=== PATIENT | female | born 1995 | race Caucasian/White ===

== ENCOUNTER 2018-01-07 15:43 | Inpatient (IN) | payer OTHER ==
[2018-01-07] MEDS ORDERED: PROMETHAZINE HCL 25 MG/1 ML VIAL IVPB ONE (16:20)
[2018-01-07] MEDS ORDERED: BUTORPHANOL TARTRATE 1 MG/ML VIAL IVPB ONE (16:20)
[2018-01-07] MEDS: DEXTROSE 5%-LACTATED RINGERS 1,000 ML IV SCH (16:30)
[2018-01-07 16:56] VITALS: BMI 27.8
[2018-01-07 17:33] LABS: BASO % 0.2 % (0-2.0); EOS % 0.2 % (0-4.5); HEMATOCRIT 36.4 % (32.4-45.2); HEMOGLOBIN 12.1 GM/dL (10.7-15.3); LYMPH % 15.2 % (8-40); MCH 30.4 pg (25.7-33.7); MCHC 33.1 g/dl (32.0-36.0); MEAN CELL VOLUME 91.7 fl (80-96); MEAN PLT VOLUME 10.4 fl (7.5-11.1); MONO % 4.4 % (3.8-10.2); PLATELET COUNT 171 K/MM3 (134-434); RBC 3.97 M/mm3 (3.60-5.2); RDW 13.3 % (11.6-15.6); WHITE BLOOD COUNT 11.1 K/mm3 (4.0-10.0)
--- NOTE | 2018-01-07 17:41 | HP ---
Past Medical History - Primary Care Physician PCP:: Nakul Burgos - Admission Chief Complaint: 40 weeks , labor, ama History of Present Illness: 22 yo f g 3 [id number] 40.2 weeks, c/o contractions since 11 am today, no rom, no bleeding , cx 3 cm 80 vx -2 mi, fhr cat 1, irregular contraction History Source: Patient Limitations to Obtaining History: No Limitations - Past Medical History Pulmonary: Yes: O2 Dependent ...: 3 ...Para: 1 ...Term: 1 ...: 0 ...Spon : 1 ...Induced : 0 ...Multiple Gestation: 0 ...LMP: 04/28/17 ... Weeks Gestation by Dates: 36.1 ...EDC by Dates: 02/03/18 ...EDC by Sono: 01/08/18 - Past Surgical History Hx Myomectomy: No Hx Transabdominal Cerclage: No - Smoking History Smoking history: Never smoked Have you smoked in the past 12 months: No Aproximately how many cigarettes per day: 0 - Alcohol/Substance Use Hx Alcohol Use: No - Social History History of Recent Travel: No Home Medications - Allergies Allergies/Adverse Reactions: Allergies Allergy/AdvReac Type Severity Reaction Status Date / Time No Known Allergies Allergy Verified 01/07/18 16:20 - Home Medications Home Medications: Ambulatory Orders Vit/Iron Fum/Folic AC [ Tablet] 1 tab PO DAILY 01/07/18 Review of Systems - Review of Systems Constitutional: reports: No Symptoms Eyes: reports: No Symptoms HENT: reports: No Symptoms Neck: reports: No Symptoms Cardiovascular: reports: No Symptoms Respiratory: reports: No Symptoms Gastrointestinal: reports: Abdominal Pain Genitourinary: reports: No Symptoms Breasts: reports: No Symptoms Reported Musculoskeletal: reports: No Symptoms Integumentary: reports: No Symptoms Neurological: reports: No Symptoms Endocrine: reports: No Symptoms Hematology/Lymphatic: reports: No Symptoms Psychiatric: reports: No Symptoms Physical Exam - Maternity Vital Signs: Vital Signs Temperature 99.4 F 01/07/18 17:00 Pulse Rate 69 01/07/18 17:00 Respiratory Rate 20 01/07/18 17:00 Blood Pressure 127/73 01/07/18 17:00 O2 Sat by Pulse Oximetry (%) Constitutional: Yes: Well Nourished, No Distress, Calm Eyes: Yes: WNL, Conjunctiva Clear, EOM Intact HENT: Yes: WNL, Atraumatic, Normocephalic Neck: Yes: WNL, Supple, Trachea Midline Cardiovascular: Yes: WNL, Regular Rate and Rhythm Breast(s): Yes: WNL - Abdominal Exam/OB Fundal Height: 40 Number of Fetuses: Single Problem List - Problems (1) Post term over 40 weeks Code(s): O48.0 - POST-TERM (2) 40 weeks gestation of Code(s): Z3A.40 - 40 WEEKS GESTATION OF (3) Labor established Code(s): KTQ6237 - Assessment/Plan plan admit, FHM, pain management, anticipate vaginal delivery
[2018-01-07 17:52] LABS: ANION GAP 12 (8-16); BLOOD UREA NITROGEN 9 mg/dL (7-18); CALCIUM 8.7 mg/dL (8.5-10.1); CHLORIDE 110 mmol/L (98-107); CO2 19 mmol/L (21-32); CREATININE 0.6 mg/dL (0.55-1.02); GLUCOSE,RANDOM 81 mg/dL (74-106); POTASSIUM 3.9 mmol/L (3.5-5.1); SODIUM 141 mmol/L (136-145)
[2018-01-07 18:06] LABS: INR 0.88 (0.82-1.09); PROTHROMBIN TIME (PATIENT) 9.9 SEC (9.7-13.0)
[2018-01-07 18:09] LABS: ACTIVATED PTT 26.4 SECONDS (25.2-36.5)
[2018-01-07] MEDS ORDERED: OXYTOCIN 20 UNITS in 0.9% NS 20 UNIT/1,000 ML INFUS.BAG IV ONE (20:18)
--- NOTE | 2018-01-07 20:35 | PN ---
Progress Note (short form) - Note Progress Note: 755 pm cx 6 cm 80 vx 0 arom clear, fhr cat 1 Problem List - Problems (1) Post term over 40 weeks Code(s): O48.0 - POST-TERM (2) 40 weeks gestation of Code(s): Z3A.40 - 40 WEEKS GESTATION OF (3) Labor established Code(s): TQY5914 -
[2018-01-07] MEDS ORDERED: METHYLERGONOVINE MALEATE 0.2 MG/1 ML AMP IM PRN (20:36)
[2018-01-07] MEDS ORDERED: BISACODYL 10 MG SUPP.RECT RC PRN (20:36)
[2018-01-07] MEDS ORDERED: BENZOCAINE 20% 57 GM BOTTLE TP PRN (20:36)
[2018-01-07] MEDS ORDERED: WITCH HAZEL 50% (TUCKS) 40 PAD/JAR PAD TP PRN (20:36)
[2018-01-07] MEDS ORDERED: ACETAMINOPHEN 325 MG TABLET (FP) PO PRN (20:36)
[2018-01-07] MEDS ORDERED: BENZOCAINE 28 GM HEMORRHOIDAL OINTMENT TP PRN (20:36)
[2018-01-07] MEDS ORDERED: D5W-LR W/ 20 UNITS OXYTOCIN 20 UNIT/1,000 ML INFUS.BAG IV SCH (20:45)
[2018-01-07 20:49] LABS: PLATELET ESTIMATE ADEQUATE
[2018-01-07] MEDS: IBUPROFEN 600 MG TABLET (FP) PO PRN (21:00)
[2018-01-07] MEDS ORDERED: IBUPROFEN 600 MG TABLET (FP) PO ONE (21:05)
--- NOTE | 2018-01-08 07:48 | PN ---
Progress Note (short form) - Note Progress Note: ppd 1 doing well, ,no excess vaginal bleeding Last Vital Signs Temp Pulse Resp BP Pulse Ox 98.6 F 57 L 18 120/64 01/08/18 06:00 01/08/18 06:00 01/08/18 06:00 01/08/18 06:00 abdomen soft, uterus firm, non tender lochia mild no calf tenderness plan ambulate , cbc Problem List - Problems (1) Post term over 40 weeks Code(s): O48.0 - POST-TERM (2) 40 weeks gestation of Code(s): Z3A.40 - 40 WEEKS GESTATION OF (3) Labor established Code(s): UTL7323 -
[2018-01-08 07:49] LABS: BASO % 0.2 % (0-2.0); EOS % 0.3 % (0-4.5); HEMATOCRIT 36.8 % (32.4-45.2); HEMOGLOBIN 12.5 GM/dL (10.7-15.3); LYMPH % 23.9 % (8-40); MCH 31.2 pg (25.7-33.7); MCHC 33.9 g/dl (32.0-36.0); MEAN CELL VOLUME 92.1 fl (80-96); MEAN PLT VOLUME 11.4 fl (7.5-11.1); MONO % 6.3 % (3.8-10.2); NEUT % 69.3 % (42.8-82.8); PLATELET COUNT 164 K/MM3 (134-434); RBC 3.99 M/mm3 (3.60-5.2); RDW 13.5 % (11.6-15.6); WHITE BLOOD COUNT 15.9 K/mm3 (4.0-10.0)
[2018-01-08] MEDS: FERROUS SO4 325 MG TABLET (FP) PO SCH ×2 (10:05→17:57)
[2018-01-08] MEDS: PRENATAL VITAMINS W/ FOLIC ACID TABLET (FP) PO SCH (10:05)
[2018-01-08] MEDS: DEXTROSE 5%-LACTATED RINGERS 1,000 ML IV SCH (20:19)
[2018-01-08] MEDS ORDERED: SENNOSIDES/DOCUSATE COMBO (SENNA PLUS) TABLET (UD) PO PRN (22:00)
[2018-01-08] MEDS: IBUPROFEN 600 MG TABLET (FP) PO PRN (23:05)
--- NOTE | 2018-01-09 08:04 | DS ---
Physical Exam-[facility] Vital Signs: Vital Signs Temperature 98.5 F 01/08/18 22:00 Pulse Rate 59 L 01/08/18 22:00 Respiratory Rate 18 01/08/18 22:00 Blood Pressure 121/58 01/08/18 22:00 O2 Sat by Pulse Oximetry (%) Constitutional: Yes: Well Nourished, No Distress, Calm Eyes: Yes: WNL, Conjunctiva Clear, EOM Intact HENT: Yes: WNL, Atraumatic, Normocephalic Neck: Yes: WNL, Supple, Trachea Midline Cardiovascular: Yes: WNL, Regular Rate and Rhythm Respiratory: Yes: WNL, Regular, CTA Bilaterally Gastrointestinal: Yes: WNL ...Rectal Exam: Yes: WNL Renal/: Yes: WNL ....Post : Yes: Uterus firm, Uterus non-tender, Slight lochia rubra Breast(s): Yes: WNL Musculoskeletal: Yes: WNL Extremities: Yes: WNL Edema: No Integumentary: Yes: WNL Neurological: Yes: WNL, Alert, Oriented ...Motor Strength: WNL Psychiatric: Yes: WNL, Alert, Oriented Labs: CBC, BMP 01/08/18 06:30 01/07/18 17:15 Delivery - Delivery Vaginal Delivery: Spontaneous (no complication) Type of Anesthesia: None Episiotomy/Laceration: None EBL (cc): 300 Delivery, Single - Stages of Labor Date 1st Stage Initiatied: 01/07/18 Time 1st Stage Initiated: 13:00 Date 2nd Stage Initiated: 01/07/18 Time 2nd Stage Initiated: 20:15 Date of Delivery: 01/07/18 Time of Delivery: 20:24 Time Placenta Delivered: 20:25 Placenta: Yes: Spontaneous - Condition of Infant Real Estate Administrative Assistant/Blanking Machine Operator Present: No Infant Gender: Female Weight: 6 lb 14 oz Position: Right, OA Total Hours ROM (Hrs/Mins): 29m - 1 Minute Total Score: 9 5 Minutes Total Score: 9 - Feeding Plan Initial Plan: Exclusive throughout hospitalization Discharge Summary Current Active Problems 40 weeks gestation of (Acute) Labor established (Acute) Post term over 40 weeks (Acute) Procedures: Principal: Hospital Course: no complication Condition: Good - Instructions Diet, Activity, Other Instructions: regular diet, no intercourse, if heavy vaginal bleeding pain call mD, follow up [facility] 4 weeks Referrals: Nakul Burgos MD [Staff Physician] - Disposition: HOME - Home Medications Comprehensive Discharge Medication List: Ambulatory Orders Vit/Iron Fum/Folic AC [ Tablet] 1 tab PO DAILY 01/07/18
[2018-01-09] MEDS: PRENATAL VITAMINS W/ FOLIC ACID TABLET (FP) PO SCH (09:16)
[2018-01-09] MEDS: FERROUS SO4 325 MG TABLET (FP) PO SCH (09:16)
[2018-01-09 10:17] VITALS: BP 112/59; PULSE 60; TEMP 98.4
== END 2018-01-09 12:20 | disposition home or self-care (01) | DRG 560 ==
LOC: JDEL 15:43 → JLDR 16:20 → J3W 21:57
PROVIDERS: ADMIT Obstetrics & Gynecology; ATTEND Obstetrics & Gynecology
PROC: 10E0XZZ Delivery of Products of Conception, External Approach (ICD-10-PCS; principal; 2018-01-07)
DX: O48.0 Post-term pregnancy (principal); Z3A.40 40 weeks gestation of pregnancy; Z37.0 Single live birth
CPT/HCPCS: 36415; 59409; 80048; 85025; 85610; 85730; 86593; 86850; 86900; 86901

== ENCOUNTER 2019-08-16 14:42 | Emergency (ER) | payer OTHER ==
[2019-08-16 14:48] VITALS: BP 115/76; PULSE 64; TEMP 98.4; BMI 25.6
--- NOTE | 2019-08-16 14:50 | PDOC ---
Rapid Medical Evaluation Time Seen by Provider: 08/16/19 14:46 Medical Evaluation: Allergies Allergy/AdvReac Type Severity Reaction Status Date / Time No Known Allergies Allergy Verified 01/07/18 16:20 08/16/19 14:46 Pt presents for three days of upper abdominal pain which gets worse after eating. Denies vomiting and diarrhea. Exam: TTP of the epigastric region, slight discomfort in the RUQ Orders: Labs, US, Urine, IV Pt to proceed to the ER for further evaluation Discharge Disposition - Diagnosis Abdominal pain Qualifiers: Abdominal location: epigastric Qualified Code(s): R10.13 - Epigastric pain - Referrals - Patient Instructions - Post Discharge Activity
[2019-08-16] MEDS ORDERED: MAG HYDROX/AL HYDROX/SIMETH 30 ML UNIT-DOSE CUP PO ONE (16:27)
[2019-08-16] MEDS ORDERED: FAMOTIDINE 20 MG/50 ML IVPB 20 MG/50 ML MG IVPB ONE ×2 (16:27→17:21)
--- NOTE | 2019-08-16 16:45 | PDOC ---
History of Present Illness - General History Source: Patient Exam Limitations: No Limitations - History of Present Illness Initial Comments: 08/16/19 16:42 Patient is a 24-year-old female who presents to the ED with 3 days of epigastric abdominal pain. She states she has some burning sensation as well. She denies any nausea or vomiting. She has not taken anything for her symptoms. The pain does not radiate. She denies any diarrhea. She has denies any past medical history or allergies to medications. The pain is sometimes worse with eating food. <Ariela Fan - Last Filed: 08/16/19 18:01> <Michaela Juárez - Last Filed: 08/19/19 12:51> - General Chief Complaint: Pain Stated Complaint: ABD PAIN Time Seen by Provider: 08/16/19 14:46 Past History - Past Medical History Asthma: No Cancer: No Cardiac Disorders: No Diabetes: No HTN: No Seizures: No Thyroid Disease: No - Psycho Social/Smoking Cessation Hx Smoking Status: No Smoking History: Never smoked Have you smoked in the past 12 months: No Number of Cigarettes Smoked Daily: 0 Hx Alcohol Use: No Drug/Substance Use Hx: No Substance Use Type: None Hx Substance Use Treatment: No <Ariela Fan - Last Filed: 08/16/19 18:01> <Michaela Juárez - Last Filed: 08/19/19 12:51> - Past Medical History Allergies/Adverse Reactions: Allergies Allergy/AdvReac Type Severity Reaction Status Date / Time No Known Allergies Allergy Verified 08/16/19 16:21 Home Medications: Ambulatory Orders Famotidine [Pepcid] 20 mg PO BID #14 tablet 08/16/19 Review of Systems - Review of Systems Comments:: 08/16/19 16:43 - Review of Systems Able to Perform ROS?: Yes Constitutional: No: Fever, Chills, Loss of Appetite, Night Sweats, Weakness HEENTM: No: Eye Pain, Vision changes, Ear Pain, Throat Pain, Throat Swelling, Mouth Pain, Difficulty Swallowing Respiratory: No: Cough, Shortness of Breath, Wheezing, Sputum Production Cardiac (ROS): No: Chest Pain, Chest Tightness, Palpitations, Irregular Heart Beat, Edema ABD/GI: No: Nausea, Vomiting, Diarrhea; Positive epigastric abdominal pain : No Dysuria, No Hematuria, No Frequency, No Urgency Musculoskeletal: No: Muscle Pain, Back Pain, Joint Pain, Muscle Weakness, Neck Pain Integumentary: No: Lesions, Rash Neurological: No: Headache, Numbness, Tingling, Weakness, Speech Difficulties <MengDiazAriela D - Last Filed: 08/16/19 18:01> *Physical Exam - Vital Signs Last Vital Signs Temp Pulse Resp BP Pulse Ox 98.4 F 64 16 115/76 98 08/16/19 14:44 08/16/19 14:44 08/16/19 14:44 08/16/19 14:44 08/16/19 14:44 - Physical Exam 08/16/19 16:43 - Physical Exam General Appearance: Nourished, Appropriately Dressed, No Distress HEENT: EOMI, Normal Voice, No Muffled/Hoarse voice, No Nasal Congestion, No Rhinorrhea, Hearing Grossly Normal Neck: Supple, No Lymphadenopathy (R), No Lymphadenopathy (L), No Rigidity, No Decreased range of motion Respiratory/Chest: Lungs Clear, Normal Breath Sounds. No Respiratory Distress, No Accessory Muscle Use Cardiovascular: Regular Rhythm, Regular Rate, S1, S2 Gastrointestinal/Abdominal: Normal Bowel Sounds, Soft. No Guarding, No Rebound , No Rigidity; Moderate epigastric abdominal tenderness to palpation. No right upper quadrant abdominal tenderness to palpation. Negative Stubbs sign. No CVA tenderness bilaterally. Musculoskeletal: Normal Inspection. No Decreased Range of Motion Extremity: Normal Capillary Refill, Normal Inspection Integumentary: Normal Color, Dry. No Rash Neurologic: process machine operator II-XII NML intact, Fully Oriented, Alert, Normal Mood/Affect, Normal Response <Ariela Fan D - Last Filed: 08/16/19 18:01> - Vital Signs Last Vital Signs Temp Pulse Resp BP Pulse Ox 98.4 F 64 16 115/76 98 08/16/19 14:44 08/16/19 14:44 08/16/19 14:44 08/16/19 14:44 08/16/19 14:44 <Michaela Juárez - Last Filed: 08/19/19 12:51> ED Treatment Course - LABORATORY CBC & Chemistry Diagram: 08/16/19 16:45 08/16/19 16:45 <Ariela Fan - Last Filed: 08/16/19 18:01> - LABORATORY CBC & Chemistry Diagram: 08/16/19 16:45 08/16/19 16:45 - ADDITIONAL ORDERS Additional order review: 08/16/19 16:45 Urine Culture - Final Urine - Urine Clean Catch NO GROWTH OBTAINED 08/16/19 16:45 RBC 4.49 MCV 89.6 MCHC 33.5 RDW 14.0 MPV 9.2 D Neutrophils % 59.8 Lymphocytes % 33.5 D Monocytes % 5.0 Eosinophils % 1.2 D Basophils % 0.5 - Medications Given in the ED: ED Medications Discontinued Medications Generic Name Dose Route Start Last Admin Trade Name Freq PRN Reason Stop Dose Admin Al Hydroxide/Mg Hydroxide 30 ml 08/16/19 16:27 08/16/19 17:24 Mylanta Oral Suspension - PO 08/16/19 16:28 30 ml ONCE ONE Administration Famotidine/Sodium Chloride 20 mg in 50 mls @ 100 mls/hr 08/16/19 16:27 17:24 Pepcid 20 Mg Premixed Ivpb - IVPB 08/16/19 16:56 100 mls/hr ONCE ONE Administration <Michaela Juárez - Last Filed: 08/19/19 12:51> Medical Decision Making - Medical Decision Making 08/16/19 16:44 Assessment: Patient is a 24-year-old female with 3 days of epigastric abdominal pain Plan: -Right upper quadrant ultrasound ordered from triage -Labs ordered -Pepcid IV -Maalox p.o. -Will reassess 08/16/19 18:01 Patient states that she is feeling a little bit better. At this time she has been made aware that all of her labs and her ultrasound are within normal limits. She likely has GERD. We will send Pepcid to her pharmacy. She should follow-up with her primary doctor within 1 to 2 days for repeat evaluation. <Ariela Fan - Last Filed: 08/16/19 18:01> - Medical Decision Making I reviewed the case with the mid-level practitioner and agree with the mid- level practitioner's assessment, diagnosis and disposition. <Michaela Juárez - Last Filed: 08/19/19 12:51> Discharge - Discharge Information Problems reviewed: Yes <Ariela Fan - Last Filed: 08/16/19 18:01> <FranckMichaela - Last Filed: 08/19/19 12:51> - Discharge Information Clinical Impression/Diagnosis: Epigastric abdominal pain Abdominal pain Qualifiers: Abdominal location: epigastric Qualified Code(s): R10.13 - Epigastric pain Condition: Stable Disposition: HOME - Additional Discharge Information Prescriptions: Famotidine [Pepcid] 20 mg PO BID #14 tablet - Follow up/Referral Referrals: Nancy Cox MD [Staff Physician] - (Follow up with GI if your symptoms persist) - Patient Discharge Instructions Patient Printed Discharge Instructions: DI for Epigastric Pain Additional Instructions: Be sure to avoid spicy, acidic, fried, caffeinated, fatty foods to allow your stomach to settle down. Take the medications as prescribed. Follow-up with your primary doctor within a few days for repeat evaluation. If your symptoms persist you may want to see GI and a referral has been given to you. Print Language: LEBANESE - Post Discharge Activity Work/Back to School Note: Back to Work
[2019-08-16] MEDS ORDERED: MAG HYDROX/AL HYDROX/SIMETH 30 ML UNIT-DOSE CUP ONE (17:21)
[2019-08-16 17:22] LABS: BASO % 0.5 % (0-2.0); EOS % 1.2 % (0-4.5); HEMATOCRIT 40.3 % (32.4-45.2); HEMOGLOBIN 13.5 GM/dL (10.7-15.3); LYMPH % 33.5 % (8-40); MCHC 33.5 g/dl (32.0-36.0); MEAN CELL VOLUME 89.6 fl (80-96); MEAN PLT VOLUME 9.2 fl (7.5-11.1); NEUT % 59.8 % (42.8-82.8); PLATELET COUNT 287 K/MM3 (134-434); RBC 4.49 M/mm3 (3.60-5.2); WHITE BLOOD COUNT 9.6 K/mm3 (4.0-10.0)
[2019-08-16 17:28] LABS: PH,URINE 6.5 (5.0-8.0); URINE APPEARANCE CLEAR; URINE BILIRUBIN NEGATIVE (NEGATIVE); URINE COLOR YELLOW; URINE GLUCOSE (UA) NEGATIVE (NEGATIVE); URINE KETONE NEGATIVE (NEGATIVE); URINE LEUK ESTERASE NEGATIVE (NEGATIVE); URINE NITRITE NEGATIVE (NEGATIVE); URINE PROTEIN NEGATIVE (NEGATIVE); URINE UROBILINOGEN 0.2 mg/dL (0.2-1.0)
[2019-08-16 17:46] LABS: ALBUMIN 4.1 g/dl (3.4-5.0); BILIRUBIN,TOTAL 0.5 mg/dL (0.2-1); BLOOD UREA NITROGEN 10.3 mg/dL (7-18); CALCIUM 9.2 mg/dL (8.5-10.1); CREATININE 0.7 mg/dL (0.55-1.3); POTASSIUM 3.9 mmol/L (3.5-5.1); TOT PROT 7.6 g/dl (6.4-8.2)
[2019-08-16 19:48] LABS: EPI CELLS 0-2 /HPF (0-5/HPF); HYALINE CASTS 0 /lpf (0-8); URINE WBC 0-1 /hpf (0-5)
[2019-08-16 19:49] LABS: URINE BACTERIA 0 /hpf (NEGATIVE); URINE RBC 0-3 /hpf (0-4)
== END 2019-08-16 18:49 | disposition home or self-care (01) ==
LOC: JER 14:42
PROC: 3E033GC Introduction of Other Therapeutic Substance into Peripheral Vein, Percutaneous Approach (ICD-10-PCS; principal; 2019-08-16)
DX: R10.13 Epigastric pain (principal)
CPT/HCPCS: 36415; 76705-TC; 80053; 81003; 83690; 84703; 85025; 87086; 96365; 99285-25

== ENCOUNTER 2022-01-31 19:16 | Emergency (ER) | payer OTHER ==
[2022-01-31 19:24] VITALS: BP 109/67; PULSE 63; RESP 18; TEMP 98.3; BMI 22.3
[2022-01-31] MEDS ORDERED: ACETAMINOPHEN 1000 MG/100 ML BAG IVPB ONE (21:07)
[2022-01-31] MEDS ORDERED: SODIUM CHLORIDE 1,000 ML IV STA (21:07)
[2022-01-31] MEDS ORDERED: FAMOTIDINE 20 MG/50 ML IVPB 20 MG/50 ML MG IVPB ONE ×2 (21:07→22:07)
[2022-01-31] MEDS ORDERED: ONDANSETRON 4 MG/2 ML VIAL IVPUSH ONE (21:08)
[2022-01-31] MEDS ORDERED: MAG HYDROX/AL HYDROX/SIMETH 30 ML UNIT-DOSE CUP PO ONE (21:09)
[2022-01-31] MEDS ORDERED: MAG HYDROX/AL HYDROX/SIMETH 30 ML UNIT-DOSE CUP ONE (22:06)
[2022-01-31] MEDS ORDERED: ONDANSETRON 4 MG/2 ML VIAL ONE (22:06)
[2022-01-31] MEDS ORDERED: ACETAMINOPHEN INJECTION 100 ML IVPB ONE (22:06)
[2022-01-31 22:33] LABS: BASO % 0.7 % (0-2.0); EOS % 0.5 % (0-4.5); HEMATOCRIT 38.4 % (32.4-45.2); HEMOGLOBIN 13.3 GM/dL (10.7-15.3); LYMPH % 35.7 % (8-40); MCH 30.2 pg (25.7-33.7); MCHC 34.6 g/dl (32.0-36.0); MEAN CELL VOLUME 87.2 fl (80-96); MEAN PLT VOLUME 8.5 fl (7.5-11.1); NEUT % 54.1 % (42.8-82.8); PLATELET COUNT 258 10^3/uL (134-434); RDW 13.8 % (11.6-15.6); WHITE BLOOD COUNT 6.8 K/mm3 (4.0-10.0)
[2022-01-31 22:55] LABS: ALBUMIN 3.8 g/dl (3.4-5.0); CALCIUM 8.8 mg/dL (8.5-10.1)
[2022-01-31 22:56] LABS: BLOOD UREA NITROGEN 9.9 mg/dL (7-18); MAGNESIUM 2.2 mg/dL (1.8-2.4)
[2022-01-31 22:58] LABS: CREATININE 0.6 mg/dL (0.55-1.3)
[2022-01-31 22:59] LABS: PHOSPHOROUS 3.3 mg/dL (2.5-4.9)
[2022-01-31 23:00] LABS: BILIRUBIN,TOTAL 0.3 mg/dL (0.2-1); TOT PROT 6.7 g/dl (6.4-8.2)
[2022-01-31 23:39] LABS: URINE APPEARANCE CLEAR; URINE BILIRUBIN NEGATIVE (NEGATIVE); URINE COLOR YELLOW; URINE GLUCOSE (UA) NEGATIVE (NEGATIVE); URINE KETONE 1+ (NEGATIVE); URINE LEUK ESTERASE NEGATIVE (NEGATIVE); URINE NITRITE NEGATIVE (NEGATIVE); URINE PROTEIN NEGATIVE (NEGATIVE)
[2022-01-31 23:41] LABS: HCG,QUALITATIVE URINE Negative
== END 2022-02-01 00:43 | disposition home or self-care (01) ==
LOC: JER 19:16
DX: R10.9 Unspecified abdominal pain (principal)
CPT/HCPCS: 36415; 76705-TC; 80053; 81003; 83690; 83735; 84100; 84484; 84703; 85025; 87086; 93005; 93010; 99284-25

== ENCOUNTER 2023-03-27 22:34 | Emergency (ER) | payer OTHER ==
[2023-03-27 22:39] VITALS: RESP 18; BMI 23.5
[2023-03-27] MEDS ORDERED: ACETAMINOPHEN 1000 MG/100 ML BAG IVPB ONE (23:37)
[2023-03-27] MEDS ORDERED: ACETAMINOPHEN INJECTION 100 ML IVPB ONE (23:38)
[2023-03-27 23:50] LABS: BASO % 0.6 % (0-2.0); EOS % 0.6 % (0-4.5); HEMATOCRIT 37.3 % (32.4-45.2); HEMOGLOBIN 13.1 GM/dL (10.7-15.3); LYMPH % 26.2 % (8-40); MCH 30.3 pg (25.7-33.7); MEAN CELL VOLUME 86.5 fl (80-96); MEAN PLT VOLUME 8.8 fl (7.5-11.1); MONO % 5.5 % (3.8-10.2); NEUT % 67.1 % (42.8-82.8); PLATELET COUNT 277 10^3/uL (134-434); RBC 4.31 M/mm3 (3.60-5.2); RDW 13.8 % (11.6-15.6)
[2023-03-27 23:53] LABS: PH,URINE 6.5 (5.0-8.0); URINE APPEARANCE CLEAR; URINE BILIRUBIN NEGATIVE (NEGATIVE); URINE COLOR YELLOW; URINE GLUCOSE (UA) NEGATIVE (NEGATIVE); URINE KETONE TRACE (NEGATIVE); URINE LEUK ESTERASE NEGATIVE (NEGATIVE); URINE NITRITE NEGATIVE (NEGATIVE); URINE PROTEIN NEGATIVE (NEGATIVE); URINE UROBILINOGEN 0.2 mg/dL (0.2-1.0)
[2023-03-27 23:57] LABS: INR 1.1 (0.83-1.09); PROTHROMBIN TIME (PATIENT) 12.7 SEC (9.7-13.0)
[2023-03-28] LABS: ACTIVATED PTT 28.3 SECONDS (25.2-36.5)
[2023-03-28 00:10] LABS: POTASSIUM 3.8 mmol/L (3.5-5.1)
[2023-03-28 00:12] LABS: CALCIUM 8.5 mg/dL (8.5-10.1)
[2023-03-28 00:13] LABS: ALBUMIN 3.9 g/dl (3.4-5.0); BLOOD UREA NITROGEN 14.1 mg/dL (7-18); MAGNESIUM 2.2 mg/dL (1.8-2.4)
[2023-03-28 00:16] LABS: CREATININE 0.8 mg/dL (0.55-1.3)
[2023-03-28 00:17] LABS: BILIRUBIN,TOTAL 0.6 mg/dL (0.2-1)
[2023-03-28 00:18] LABS: TOT PROT 7.1 g/dl (6.4-8.2)
[2023-03-28 00:50] VITALS: BP 107/58; PULSE 56; TEMP 98.2
== END 2023-03-28 02:06 | disposition home or self-care (01) ==
LOC: JER 22:34
PROC: 3E033NZ Introduction of Analgesics, Hypnotics, Sedatives into Peripheral Vein, Percutaneous Approach (ICD-10-PCS; principal; 2023-03-27)
DX: R07.89 Other chest pain (principal)
CPT/HCPCS: 36415; 71046-TC-FY; 80053; 81003; 83735; 84484; 84703; 85025; 85610; 85730; 87086; 93005; 93010; 96374; 99285-25

== ENCOUNTER 2024-07-10 14:04 | Emergency (ER) | payer OTHER ==
[2024-07-10 14:15] VITALS: BP 131/78; PULSE 63; RESP 18; TEMP 99; BMI 25.1
== END 2024-07-10 15:06 | disposition home or self-care (01) ==
LOC: JERFT 14:04 → JER 14:04 → JERFT 15:06
DX: R05.9 Cough, unspecified (principal); J06.9 Acute upper respiratory infection, unspecified; R51.9 Headache, unspecified; R09.81 Nasal congestion; M79.10 Myalgia, unspecified site; R50.9 Fever, unspecified; B97.4 Respiratory syncytial virus as the cause of diseases classified elsewhere; Z20.822 Contact with and (suspected) exposure to COVID-19
CPT/HCPCS: 0241U-QW; 99283-25